=== PATIENT | female | born 1995 | race Caucasian/White ===

== ENCOUNTER 2018-09-18 18:31 | Emergency (ER) | payer MEDICAID ==
[2018-09-18] MEDS ORDERED: Sodium Chloride 0.9% 1,000 ML IV ONE (20:30)
[2018-09-18] MEDS ORDERED: Sodium Chloride 0.9% 10 ML Syringe FLUSH PRN (20:30)
--- NOTE | 2018-09-18 22:32 | EDM.PDOC ---
ED HPI GENERAL MEDICAL PROBLEM - General Chief Complaint: Syncope Stated Complaint: CHEST PAIN Time Seen by Provider: 09/18/18 21:13 Source of Information: Reports: Patient History Limitations: Reports: No Limitations - History of Present Illness INITIAL COMMENTS - FREE TEXT/NARRATIVE: Patient is a 23-year-old female presents ED complaining of having syncopal episodes. Patient states over the past few days she's been experiencing increasing stress with moving into her own apartment. She is financially strapped. States she will start breathing fast and develops numbness into her lips and passes out. She denies hitting her head nor injuring her back/neck. She states the fall is a controlled fall when this occurs. She does not believe she goes completely unconscious. She at times complains of being nauseated. She does have a history of anxiety and depression and recently quit taking 4 medications approximately one month ago. These medications included Celexa, hydroxyzine, Trintellix, and Restoril. She states with this new increase in stress she has been having a poor appetite. She had similar symptoms when she was 17 yeas old with diagnosis with syncope with no clear reason why. She admits to being very anxious. During these episodes patient states with body position changes she develops some dizziness. More notably she experiences these symptoms after taking a hot shower. She states at times will develop a spasming sensation to her chest with increased breathing rate and also notes it worsens with palpation. Currently She denies any vision changes, neck pain, chest pain, shortness of breath, abdominal pain, dysuria, n/t to extremities, and/or any focal neurological deficits. Currently has a mild headache frontal region and retro-orbital throbbing sensation with no photosensitivity and/or hyperacusis. Headache has been present for 2 wks off and on. She has no additional past medical history. Currently taking no medications. Smoking history none. Alcohol use none. Drug use none. PCP none. - Related Data Allergies Allergy/AdvReac Type Severity Reaction Status Date / Time No Known Allergies Allergy Verified 09/18/18 20:13 Home Meds: Home Meds . [No Known Home Meds] 09/18/18 [History] Past Medical History Musculoskeletal History: Reports: Fracture Psychiatric History: Reports: Anxiety, Depression ED ROS GENERAL - Review of Systems Review Of Systems: ROS reveals no pertinent complaints other than HPI. ED EXAM, GENERAL - Physical Exam Exam: See Below Exam Limited By: No Limitations General Appearance: Alert, WD/WN, No Apparent Distress Eye Exam: Bilateral Eye: EOMI, Normal Inspection, Nystagmus (none noted), PERRL , Vision Changes (none stated) Ears: Normal External Exam, Normal Canal, Hearing Grossly Normal, Normal TMs Nose: Normal Inspection Throat/Mouth: Normal Inspection, Normal Oropharynx, Normal Voice, No Airway Compromise Head: Atraumatic, Normocephalic Neck: Normal Inspection, Supple, Non-Tender, Full Range of Motion Respiratory/Chest: No Respiratory Distress, Lungs Clear, Normal Breath Sounds, No Accessory Muscle Use, Chest Non-Tender Cardiovascular: Normal Peripheral Pulses, Regular Rate, Rhythm, No Murmur Peripheral Pulses: 2+: Radial (L), Radial (R) GI/Abdominal: Normal Bowel Sounds, Soft, Non-Tender, No Organomegaly, No Distention Back Exam: Normal Inspection, Full Range of Motion. No: CVA Tenderness (L), CVA Tenderness (R) Extremities: Normal Inspection, Normal Range of Motion, Non-Tender, No Pedal Edema Neurological: Alert, Oriented, CN II-XII Intact, Normal Cognition, Normal Gait, No Motor/Sensory Deficits, Other (No facial droop, no slurred speech, no tongue deviation. Finger to nose and rapid alternating movements are intact. No weakness discrepancy is to the upper and lower extremities. Patient ambulated into the ED room with no symptoms.) Psychiatric: Normal Affect, Normal Mood Skin Exam: Warm, Dry, Intact, Normal Color, No Rash Course - Vital Signs Last Recorded V/S: Last Vital Signs Temp 97.4 F 09/18/18 20:13 Pulse 75 09/18/18 20:13 Resp 18 09/18/18 20:13 BP 120/74 09/18/18 20:13 Pulse Ox 99 09/18/18 20:13 - Orders/Labs/Meds Orders: Active Orders 24 hr Category Date Time Status EKG Documentation Completion [RC] STAT Care 09/18/18 20:29 Active Holter Monitor 48 Hours [RC] .PRN Care 09/18/18 23:01 Active Peripheral IV Care [RC] . DIRECTED Care 09/18/18 20:30 Active Sodium Chloride 0.9% [Saline Flush] Med 09/18/18 20:30 Active 10 ml FLUSH ASDIRECTED PRN Peripheral IV Insertion Adult [OM.PC] Routine Oth 09/18/18 20:30 Ordered Medication Orders Sodium Chloride (Saline Flush) 10 ml FLUSH ASDIRECTED PRN PRN Reason: Keep Vein Open Last Admin: 09/18/18 20:58 Dose: 10 ml Labs: Laboratory Tests 09/18/18 09/18/18 09/18/18 Range/Units 20:59 20:59 21:02 WBC 9.89 (3.98-10.04) K/mm3 RBC 5.21 (3.98-5.22) M/mm3 Hgb 14.5 (11.2-15.7) gm/L Hct 44.2 (34.1-44.9) % MCV 84.8 (79.4-94.8) fl MCH 27.8 (25.6-32.2) pg MCHC 32.8 (32.2-35.5) g/dl RDW Std Deviation 40.9 (36.4-46.3) fL Plt Count 288 (182-369) K/mm3 MPV 10.4 (9.4-12.3) fl Neutrophils % (Manual) 70 H (40-60) % Band Neutrophils % 0 (0-10) % Lymphocytes % (Manual) 26 (20-40) % Atypical Lymphs % 0 % Monocytes % (Manual) 3 (2-10) % Eosinophils % (Manual) 1 (0.7-5.8) % Basophils % (Manual) 0 L (0.1-1.2) Platelet Estimate Adequate RBC Morph Comment Normal Sodium 141 (136-145) mEq/L Potassium 3.6 (3.5-5.1) mEq/L Chloride 105 (98-107) mEq/L Carbon Dioxide 23 (21-32) mEq/L Anion Gap 16.6 H (5-15) BUN 9 (7-18) mg/dL Creatinine 1.0 (0.55-1.02) mg/dL Est Cr Clr Drug Dosing 79.40 mL/min Estimated GFR (MDRD) > 60 (>60) mL/min BUN/Creatinine Ratio 9.0 L (14-18) Glucose 87 (74-106) mg/dL Calcium 9.3 (8.5-10.1) mg/dL Total Bilirubin 0.3 (0.2-1.0) mg/dL AST 19 (15-37) U/L ALT 23 (14-59) U/L Alkaline Phosphatase 92 (46-116) U/L C-Reactive Protein 0.5 (<1.0) mg/dL Total Protein 8.4 H (6.4-8.2) g/dl Albumin 4.1 (3.4-5.0) g/dl Globulin 4.3 gm/dL Albumin/Globulin Ratio 1.0 (1-2) Urine Color (Yellow) Urine Appearance (Clear) Urine pH (5.0-8.0) Ur Specific [place] (1.005-1.030) Urine Protein (Negative) Urine Glucose (UA) (Negative) Urine Ketones (Negative) Urine Occult Blood (Negative) Urine Nitrite (Negative) Urine Bilirubin (Negative) Urine Urobilinogen (0.2-1.0) Ur Leukocyte Esterase (Negative) Urine RBC (0-5) /hpf Urine WBC (0-5) /hpf Ur Epithelial Cells (0-5) /hpf Urine Bacteria (FEW) /hpf Urine Mucus (FEW) /hpf Urine HCG, Qual Negative (NEGATIVE) Urine Opiates Screen (KIQZIF=457) Ur Buprenorphine Scrn (CUTOFF=10) Ur Oxycodone Screen (ZOD6JO=785) Urine Methadone Screen (AMJFDW=903) Ur Propoxyphene Screen (VDJMXF=783) Ur Barbiturates Screen (CKXNXB=963) Ur Tricyclics Screen (OTLMBV=410) Ur Phencyclidine Scrn (CUTOFF=25) Ur Amphetamine Screen (FHJUZP=991) U Methamphetamines Scrn (AMSHMT=957) U Benzodiazepines Scrn (RHMJHD=696) U Cocaine Metab Screen (CVWHVE=478) U Marijuana (THC) Screen (CUTOFF=50) 09/18/18 09/18/18 Range/Units 21:02 21:02 WBC (3.98-10.04) K/mm3 RBC (3.98-5.22) M/mm3 Hgb (11.2-15.7) gm/L Hct (34.1-44.9) % MCV (79.4-94.8) fl MCH (25.6-32.2) pg MCHC (32.2-35.5) g/dl RDW Std Deviation (36.4-46.3) fL Plt Count (182-369) K/mm3 MPV (9.4-12.3) fl Neutrophils % (Manual) (40-60) % Band Neutrophils % (0-10) % Lymphocytes % (Manual) (20-40) % Atypical Lymphs % % Monocytes % (Manual) (2-10) % Eosinophils % (Manual) (0.7-5.8) % Basophils % (Manual) (0.1-1.2) Platelet Estimate RBC Morph Comment Sodium (136-145) mEq/L Potassium (3.5-5.1) mEq/L Chloride (98-107) mEq/L Carbon Dioxide (21-32) mEq/L Anion Gap (5-15) BUN (7-18) mg/dL Creatinine (0.55-1.02) mg/dL Est Cr Clr Drug Dosing mL/min Estimated GFR (MDRD) (>60) mL/min BUN/Creatinine Ratio (14-18) Glucose (74-106) mg/dL Calcium (8.5-10.1) mg/dL Total Bilirubin (0.2-1.0) mg/dL AST (15-37) U/L ALT (14-59) U/L Alkaline Phosphatase (46-116) U/L C-Reactive Protein (<1.0) mg/dL Total Protein (6.4-8.2) g/dl Albumin (3.4-5.0) g/dl Globulin gm/dL Albumin/Globulin Ratio (1-2) Urine Color Yellow (Yellow) Urine Appearance Clear (Clear) Urine pH 6.5 (5.0-8.0) Ur Specific [place] 1.015 (1.005-1.030) Urine Protein Negative (Negative) Urine Glucose (UA) Negative (Negative) Urine Ketones 1+ H (Negative) Urine Occult Blood 1+ H (Negative) Urine Nitrite Negative (Negative) Urine Bilirubin Negative (Negative) Urine Urobilinogen 0.2 (0.2-1.0) Ur Leukocyte Esterase Negative (Negative) Urine RBC 0-5 (0-5) /hpf Urine WBC 0-5 (0-5) /hpf Ur Epithelial Cells 0-5 (0-5) /hpf Urine Bacteria Not seen (FEW) /hpf Urine Mucus Not seen (FEW) /hpf Urine HCG, Qual (NEGATIVE) Urine Opiates Screen Negative (XZWZAR=323) Ur Buprenorphine Scrn Negative (CUTOFF=10) Ur Oxycodone Screen Negative (EET8TM=546) Urine Methadone Screen Negative (NQAZBZ=807) Ur Propoxyphene Screen Negative (BGLWTN=958) Ur Barbiturates Screen Negative (ISYCIY=560) Ur Tricyclics Screen Negative (ZOXSKD=229) Ur Phencyclidine Scrn Negative (CUTOFF=25) Ur Amphetamine Screen Negative (DUVJBY=196) U Methamphetamines Scrn Negative (ORIWIV=779) U Benzodiazepines Scrn Negative (JJXAJB=289) U Cocaine Metab Screen Negative (INLLHC=231) U Marijuana (THC) Screen Negative (CUTOFF=50) Meds: Medications Generic Name Dose Route Start Last Admin Trade Name Freq PRN Reason Stop Dose Admin Sodium Chloride 10 ml 09/18/18 20:30 09/18/18 20:58 Saline Flush FLUSH 10 ml ASDIRECTED PRN Administration Keep Vein Open Discontinued Medications Generic Name Dose Route Start Last Admin Trade Name Freq PRN Reason Stop Dose Admin Sodium Chloride 1,000 mls @ 999 mls/hr 09/18/18 20:30 09/18/18 20:57 Normal Saline IV 09/18/18 21:30 999 mls/hr ONETIME ONE Administration - Re-Assessments/Exams Free Text/Narrative Re-Assessment/Exam: I suspect cause of symptoms is more likely anxiety driven. Mother stated the patient's brother has a history of dysautonomia but has different symptoms as compared to what the patient is currently experiencing. Differential diagnoses include anxiety driven, postural hypotension secondary to dysautonomia. EKG sinus rhythm at a rate of 72 with normal [place] interval and mildly prolonged QTC. No acute ST changes noted. Labs reviewed: CBC and chemistry panel were essentially normal. AG mildly elevated at 16.6 with a normal creatinine BUN. UA came with 1+ ketones and occult blood 1+. HCG negative. Toxicology screen was negative as well. Discussed results of recent labs. Patient has no symptoms currently. She is feeling quite well. She admits that most of the symptoms have increased over the past month with increasing anxiety. Mother states patient's brother has similar symptoms worsen with anxiety as well. She will have to see a neurologist and also a anesthesiology teacher upon discharge. She'll establish medical care with a primary care provider here locally in the meantime. I have instructed them to contact PCP of her choice tomorrow for appointment and they can arrange the consultation with the anesthesiology teacher and neurologist. Return precautions were discussed with the patient and family. She'll refrain from abrupt body position changes. She'll keep well-hydrated. Refrain from any activities that cause worsening symptoms. She was instructed to return back to the ED at any time if she develops any new or worsening symptoms. Departure - Departure Time of Disposition: 22:45 Disposition: Home, Self-Care 01 Condition: Good Clinical Impression: Anxiety attack, Autonomic postural hypotension Syncopal episodes Qualifiers: Syncope type: psychogenic syncope Qualified Code(s): F48.8 - Other specified nonpsychotic mental disorders Instructions: Hypotension, [id number], Panic Attack, Syncope, [id number], Vasovagal Syncope, Adult Referrals: PCP,None [Primary Care Provider] - Forms: ED Department Discharge Additional Instructions: As discussed please take your time with body position changes. if you become dizzy suggest laying down prior to passing out. Keep well hydrated. Please establish medical care with a primary care provider here locally to obtain results of the Holter monitor. In addition suggest evaluation by neurologist and also anesthesiology teacher with family history of autonomic dysfunction. Please return back to the ED if you develop any new or worsening symptoms. - My Orders Last 24 Hours: My Active Orders 09/18/18 20:29 EKG Documentation Completion [RC] STAT 09/18/18 20:30 Peripheral IV Care [RC] . DIRECTED Sodium Chloride 0.9% [Saline Flush] 10 ml FLUSH ASDIRECTED PRN Peripheral IV Insertion Adult [OM.PC] Routine 09/18/18 23:01 Holter Monitor 48 Hours [RC] .PRN - Assessment/Plan Last 24 Hours: My Active Orders 09/18/18 20:29 EKG Documentation Completion [RC] STAT 09/18/18 20:30 Peripheral IV Care [RC] . DIRECTED Sodium Chloride 0.9% [Saline Flush] 10 ml FLUSH ASDIRECTED PRN Peripheral IV Insertion Adult [OM.PC] Routine 09/18/18 23:01 Holter Monitor 48 Hours [RC] .PRN
== END 2018-09-18 23:31 | disposition home or self-care (01) ==
LOC: JD.ED 18:31
DX: F48.8 Other specified nonpsychotic mental disorders (principal); F41.9 Anxiety disorder, unspecified
CPT/HCPCS: 36415; 80053; 80306; 81001; 81025; 85007; 85027; 86140; 93005; 93225; 93226; 96360; 99284; J7040; 93010; 99285